=== PATIENT | female | born 1935 | race Caucasian/White ===

== ENCOUNTER → 2017-01-15 | Outpatient (CLI) | payer MEDICARE, OTHER ==
[~2017-01-15] MED LIST: ADULT LOW DOSE81 MG PO; CLARITIN10 M2 PO; DIGOXIN125 MCG PO; HYDROCODON-ACE1 EAC2 PO; LEVEMIR100 UNIT/1 SC; LEVOTHYROXINE137 MCG PO; METOPROLOL TART25 MG PO; NORVASC 5 MG TAB5 MG PO; NOVOLOG 10100 UNITS/ INJ; PAROXETINE HCL20 MG PO; SPIRONOLACTONE25 MG PO; WARFARIN SODIUM2 MG PO
== END ==
LOC: RAD 13:27
DX: M79.671 Pain in right foot (principal)
CPT/HCPCS: 73610; 73630